=== PATIENT | female | born 1985 | race Caucasian/White ===

== ENCOUNTER 2016-12-06 08:15 | Day surgery (SDC) | payer BC ==
[~2016-12-06] VITALS: Ht 154.9 cm; Wt 77.2 kg
--- NOTE | 2016-12-07 08:27 | OR ---
ADMIT: 12/06/2016 RM/LOC: [facility] MR#: [id number] [id number] [place] [place] [address] Operative/Delivery Room Report SEX: F AGE: 31 : 1985 SURGERY DATE: 12/06/2016 SURGEON: Nahomi Diehl MD LEASE OUT MAN: None. PREOPERATIVE DIAGNOSES: 1. Cervical spondylosis. 2. Chronic daily headache. POSTOPERATIVE DIAGNOSES: 1. Cervical spondylosis. 2. Chronic daily headache. OPERATION: Bilateral C2-C3 cervical medial branch block. INDICATION FOR PROCEDURE: The patient is a pleasant female with history of chronic neck pain with headache, secondary to above mentioned diagnoses, comes here for planned bilateral C2-C3 cervical medial branch block. ANESTHESIA: Local without sedation. ESTIMATED BLOOD LOSS: Zero. COMPLICATIONS: None immediately evident. DESCRIPTION OF PROCEDURE: After the patient was seen in the preoperative area, vital signs were taken prior to the procedure. The risks, benefits, and alternative therapies were discussed at length. Patient consent was obtained and updated. The patient was taken to Fluoroscopy Suite and placed on the fluoroscopy table in the prone position. Pressure points were padded to comfort., monitor applied, and a timeout performed. Next, the patient's jaw was turned to the left side. The patient was monitored throughout the procedure. The patient's cervical area was then prepped and draped in a sterile pattern using ChloraPrep. C-arm fluoroscopy was then brought in to identify the C2-C3 junction and C3 waist on the right ADMIT: 12/06/2016 RM/LOC: [facility] MR#: [id number] [id number] [id number] [address] [place] [address] Operative/Delivery Room Report SEX: F AGE: 31 : 1985 side. A 22-gauge curved-tip spinal needle was then advanced and made contact with the C2-C3 junction and C3 waist on the right side. Then we put in Isovue- 300 to confirm the placement. Then I injected 1 ml of solution consisting of 5 mg of dexamethasone with lidocaine 1% and 0.25% bupivacaine. Then I moved on to the left side and repeated the same procedure. On examination twenty minutes after the procedure, the patient had 80% pain relief and range of motion was full at the neck. FOLLOWUP: We will see the patient back for a second set of procedure in one week. Nahomi Diehl MD/ ulises JOB #: [id number] CC: Nahomi Diehl MD, Attending Physician John Epperson MD, Family Physician
== END 2016-12-06 09:51 | disposition home or self-care (01) ==
LOC: SSS 08:15
PROC: 3E0U33Z Introduction of Anti-inflammatory into Joints, Percutaneous Approach (ICD-10-PCS; principal; 2016-12-06)
PROC: 3E0U3BZ Introduction of Anesthetic Agent into Joints, Percutaneous Approach (ICD-10-PCS; principal; 2016-12-06)
PROC: BR14ZZZ Fluoroscopy of Cervical Facet Joint(s) (ICD-10-PCS; principal; 2016-12-06)
DX: G89.29 Other chronic pain (principal); M47.812 Spondylosis without myelopathy or radiculopathy, cervical region; K59.09 Other constipation; G43.701 Chronic migraine without aura, not intractable, with status migrainosus; E03.9 Hypothyroidism, unspecified; Z88.8 Allergy status to other drugs, medicaments and biological substances; Z79.899 Other long term (current) drug therapy; Z90.710 Acquired absence of both cervix and uterus; Z87.891 Personal history of nicotine dependence; Z98.890 Other specified postprocedural states

== ENCOUNTER 2017-01-03 08:19 | Day surgery (SDC) | payer BC ==
[~2017-01-03] VITALS: Ht 154.9 cm; Wt 75.0 kg
--- NOTE | 2017-01-04 08:09 | OR ---
ADMIT: 01/03/2017 RM/LOC: [facility] MR#: [id number] [id number] [id number] [address] RO[address] [place] [address] Operative/Delivery Room Report SEX: F AGE: 31 : 1985 SURGERY DATE: 01/03/2017 SURGEON: Nahomi Diehl MD TUNNEL ELASTIC OPERATOR ZIGZAG: None. PREOPERATIVE DIAGNOSES: 1. Cervical spondylosis. 2. Cervicalgia. 3. Chronic daily headaches. POSTOPERATIVE DIAGNOSES: 1. Cervical spondylosis. 2. Cervicalgia. 3. Chronic daily headaches. OPERATION: Bilateral C2-C3 medial branch block. INDICATION FOR PROCEDURE: The patient is a pleasant female with history of chronic neck pain with headaches comes here for planned bilateral C2 and C3 medial branch blocks. ANESTHESIA: Local without sedation. ESTIMATED BLOOD LOSS: Zero. COMPLICATIONS: None immediately evident. DESCRIPTION OF PROCEDURE: After the patient was seen in the preoperative area, vital signs were taken prior to the procedure. The risks, benefits, and alternative therapies were discussed at length. Patient consent was obtained and updated. The patient was taken to Fluoroscopy Suite and placed on the fluoroscopy table in the prone position. Pressure points were padded to comfort., monitor applied, and a timeout performed. Next, the patient's jaw was turned to the right side. The patient was monitored throughout the procedure. The patient's cervical area was then prepped and draped in a sterile pattern using ChloraPrep. C-arm fluoroscopy was then brought in to identify the C2-C3 junction and C3 waist on the left ADMIT: 01/03/2017 RM/LOC: [facility] MR#: [id number] [address] [address] JAIR ROJAS [address] [place] [address] Operative/Delivery Room Report SEX: F AGE: 31 : 1985 side. A 22-gauge curved-tip spinal needle was then advanced and made contact with the C2-C3 junction and C3 waist on the left side. Then we put in Isovue- 300 to confirm the placement. Then I injected 1 ml of solution consisting of 5 mg of dexamethasone and 0.25% bupivacaine. Then I moved on to the right side and repeated the same procedure. On examination ten minutes after the procedure, the patient had 80% pain relief and range of motion was full at the neck. FOLLOWUP: We will see the patient back for a second set of procedure in one week. Nahomi Diehl MD/ ulises JOB #: [id number] CC: Nahomi Diehl MD, Attending Physician John Epperson MD, Family Physician
== END 2017-01-03 09:33 | disposition home or self-care (01) ==
LOC: SSS 08:19
PROC: BR14YZZ Fluoroscopy of Cervical Facet Joint(s) using Other Contrast (ICD-10-PCS; principal; 2017-01-03)
PROC: 3E0T3BZ Introduction of Anesthetic Agent into Peripheral Nerves and Plexi, Percutaneous Approach (ICD-10-PCS; principal; 2017-01-03)
PROC: 3E0T33Z Introduction of Anti-inflammatory into Peripheral Nerves and Plexi, Percutaneous Approach (ICD-10-PCS; principal; 2017-01-03)
DX: G89.29 Other chronic pain (principal); M47.812 Spondylosis without myelopathy or radiculopathy, cervical region; R51 Headache; Z88.8 Allergy status to other drugs, medicaments and biological substances; Z79.899 Other long term (current) drug therapy